=== PATIENT | male | born 1960 | race Two or more races ===

== ENCOUNTER 2022-01-05 17:41 | Emergency (ER) | payer SELFPAY ==
[~2022-01-05] VITALS: Ht 167.6 cm; Wt 65.9 kg
[2022-01-05 20:40] VITALS: BP 132/70
--- NOTE | 2022-01-05 21:46 | RAD ---
Exam: Right ankle 3 views. Right foot 3 views INDICATION: Pain TECHNIQUE: Frontal, lateral oblique views of the right ankle and right foot Comparisons: None FINDINGS: Ankle: Bone mineralization is normal. No acute or healed fractures. Mild soft tissue swelling surrounding th e right ankle. Joint spaces are well-maintained. Foot: Bone mineralization is normal. Mild soft tissue swelling at the forefoot. Joint spaces are well-maint ained. No acute or healed fractures. IMPRESSION: 1. Soft tissue swelling at the forefoot without underlying osseous abnormality identified. 2. Mild soft tissue swelling around the ankle without underlying osseous abnormality. Electronically signed by: Krissy Serna MD (01/05/2022 9:44 PM) [place]
[2022-01-05] MEDS ORDERED: CYCL10TA19 PO (22:29)
[2022-01-05] MEDS ORDERED: METH4TAB2 PO (22:29)
[2022-01-05] MEDS ORDERED: DICL50TA4 PO (22:29)
--- NOTE | 2022-01-05 22:29 | PHYS DOC ---
Past Medical History Past Surgical History: No Surgical History General Adult EDM: Chief Complaint: FOOT INJURY PAIN HPI: HPI: Patient is a 61 year old male with no significant medical history presenting to the ED today complaining of 10 out of 10 right ankle and right little toe pain, symptoms began yesterday after he stubbed his right great toe on a door jam. Patient describes the pain as sharp and constant worse on weightbearing but states he is able to ambulate. Denies anything relieving the pain. Review of Systems: Review of Systems: Constitutional: Denies fever or chills. [] Musculoskeletal: Reports right ankle in the right little toe pain Integument: Denies rash. [] Neurologic: Denies headache, focal weakness or sensory changes. [] [] Psychiatric: Denies depression or anxiety. [] Heart Score: C/O Chest Pain: N/A Risk Factors: Risk Factors: DM, Current or recent (<one month) smoker, HTN, HLP, family history of CAD, obesity. Risk Scores: Score 0 - 3: 2.5% MACE over next 6 weeks - Discharge Home Score 4 - 6: 20.3% MACE over next 6 weeks - Admit for Clinical Observation Score 7 - 10: 72.7% MACE over next 6 weeks - Early Invasive Strategies Allergies: Allergies: Allergies Coded Allergies Type Severity Reaction Last Updated Verified No Known Drug Allergies 01/05/22 No Physical Exam: PE: Constitutional: Well developed, well nourished, no acute distress, non-toxic appearance. [] Skin: Warm, dry, no erythema, no rash. [] Back: No tenderness, no CVA tenderness. [] Extremities: Right foot and right ankle with no obvious deformity. Bruising noted on the right pinky toe. Soft tissue swelling noted on the right pinky toe and right lateral ankle, tenderness on palpation of the right pinky toe as well as lateral ankle. Full range of motion to the right foot, ankle. And toes. +2 right pedal pulse. Cap refill less than 2 seconds to right toes, no navicular bone to the right foot, no pain no tenderness to the base of the fifth metatarsal of the right foot. Neurologic: Alert and oriented X 3, normal motor function, normal sensory function, no focal deficits noted. [] Psychologic: Affect normal, judgement normal, mood normal. [] Current Patient Data: Vital Signs: Vital Signs Date Time Temp Pulse Resp B/P (MAP) Pulse Ox O2 Delivery O2 Flow Rate FiO2 01/05/22 20:40 98.7 77 18 132/70 (90) 97 Room Air 98.7 EKG: EKG: [] Radiology/Procedures: Radiology/Procedures: []PROCEDURE: FOOT RIGHT 3V Exam: Right ankle 3 views. Right foot 3 views INDICATION: Pain TECHNIQUE: Frontal, lateral oblique views of the right ankle and right foot Comparisons: None FINDINGS: Ankle: Bone mineralization is normal. No acute or healed fractures. Mild soft tissue swelling surrounding the right ankle. Joint spaces are well-maintained. Foot: Bone mineralization is normal. Mild soft tissue swelling at the forefoot. Joint spaces are well-maintained. No acute or healed fractures. IMPRESSION: 1. Soft tissue swelling at the forefoot without underlying osseous abnormality identified. 2. Mild soft tissue swelling around the ankle without underlying osseous abnormality. Electronically signed by: Krissy Martel MD (01/05/2022 9:44 PM) [facility] DICTATED and SIGNED BY: KRISSY MARTEL MD DATE: 01/05/222140 Course & Med Decision Making: Course & Med Decision Making Pertinent Labs and Imaging studies reviewed. (See chart for details) This a 61-year-old male patient presenting to the ED today with right little toe pain and ankle pain that began yesterday after he stubbed his right foot on a door stop. Right foot x-rays and right ankle x-rays interpreted by radiologist were noted for soft tissue swelling of the ankle and foot otherwise no acute findings. Soft tissue swelling at the forefoot without underlying osseous abnormality identified. Jesus wrap applied to the right foot and ankle by the ED RN, neurovascular exam done by the RN is normal. Ice elevation encouraged. Follow-up with Ortho in 1 week if pain persist Dragon Disclaimer: Dragon Disclaimer: This electronic medical record was generated, in whole or in part, using a voice recognition dictation system. Departure Departure Impression: Primary Impression: Contusion of right foot including toes Qualified Codes: S90.31XA - Contusion of right foot, initial encounter; S90.121A - Contusion of right lesser toe(s) without damage to nail, initial encounter Additional Impression: Acute right ankle pain Disposition: HOME / SELF CARE / HOMELESS Condition: STABLE Referrals: NO PCP (PCP) LESLI,HUBERT L Jr. DO follow up in one week Patient Instructions: Ankle Pain, Contusion, [id number] Additional Instructions: You were evaluated in the emergency room for right little toe pain and right ankle pain, your right foot and right ankle x-rays are negative for any acute findings. Wear the Jesus bandage provided as tolerated and needed. Please ice and elevate the extremity. Follow-up with the provided orthopedic doctor in 1 week if pain persist. Take the prescribed medications as ordered Scripts Diclofenac Sodium (DICLOFENAC SODIUM) 50 Mg Tablet.dr 1 TAB PO BID, #14 TAB 1 Refill Prov: YUNIOR CARR APRN 01/05/22 Methylprednisolone (MEDROL) 4 Mg Tab.ds.pk 1 PKG PO UD, #1 PKG Prov: YUNIOR CARR APRN 01/05/22 Cyclobenzaprine Hcl (CYCLOBENZAPRINE HCL) 10 Mg Tablet 1 TAB PO TID, #30 TAB Prov: YUNIOR CARR APRN 01/05/22 YUNIOR CARR APRN Jan 05, 2022 22:29
== END 2022-01-05 22:39 | disposition home or self-care (01) ==
LOC: ER 17:41
DX: S90.31XA Contusion of right foot, initial encounter (principal); S90.121A Contusion of right lesser toe(s) without damage to nail, initial encounter; M25.571 Pain in right ankle and joints of right foot; W21.4XXA Striking against diving board, initial encounter; Y93.89 Activity, other specified; Y92.89 Other specified places as the place of occurrence of the external cause; Y99.8 Other external cause status
CPT/HCPCS: 73610; 73630; 99284